=== PATIENT | male | born 1950 ===

== ENCOUNTER 2024-03-26 06:34 | Day surgery (SDC) | payer OTHER ==
[~2024-03-26] VITALS: Ht 166 cm; Wt 93.1 kg
[2024-03-26] VITALS (10 sets, daily range): BP systolic 136–172; BP diastolic 78–95
[~2024-03-26 06:34] MED LIST: DAILY VALUE1 EACH PO; FISH1000 PO; METO25ER PO; NEBI5; THERA-D2000 UNIT PO
[2024-03-26] MEDS ORDERED: CeFAZolin Sodium 2,000 MG in NS 100 ML IV SCH (07:05)
[2024-03-26] MEDS ORDERED: Lactated Ringer's 1,000 ML IV SCH (07:05)
[2024-03-26] MEDS ORDERED: CANDESARTAN CIL32 MG PO (07:21)
[2024-03-26] MEDS ORDERED: UBID10 PO (07:22)
[2024-03-26] MEDS ORDERED: Bupivacaine 0.5% Inj 10 ML Vial ONE (07:46)
[2024-03-26] MEDS ORDERED: FentaNYL Citrate 50 MCG/ML 2 ML Injection ONE ×2 (07:54→08:30)
[2024-03-26] MEDS ORDERED: Lidocaine HCl 2% 20 ML MDV ONE (07:54)
[2024-03-26] MEDS ORDERED: propofoL 20 ML IV ONE (07:54)
[2024-03-26] MEDS ORDERED: Rocuronium Bromide 10 MG/ML 5ML Injection IV ONE (07:55)
--- NOTE | 2024-03-26 08:10 | NUR ---
History, Chart, Medications and Allergies reviewed before start of procedure. Patient up to Ambulate independently. Gait steady. Pre-Op teaching done. Pt verbalizes understanding. Patient confirms NPO status and agrees with scheduled surgery. Patient reports completing Chlorhexadine shower X2 prior to admission to hospital. Surgical site prepped with 2% Chlorhexidine cloth wipe. Lungs clear T/O to Auscultation. Patient States Post-Procedure ride home has been arranged. Dentures removed, placed in cup with cleansing tab & transferred to PACU.
[2024-03-26] MEDS ORDERED: ePHEDrine Sulfate 50 MG/ML 1ML Injection ONE (08:28)
[2024-03-26] MEDS ORDERED: Dexamethasone Sod Phos 10 MG/ML 1ML VIAL ONE (08:28)
[2024-03-26] MEDS ORDERED: Ondansetron HCl 2 MG / ML 2ML Vial ONE (08:49)
[2024-03-26] MEDS ORDERED: Sugammadex Sodium 200 MG/2ML SDV (100 MG/ML) ONE (08:49)
[2024-03-26] MEDS ORDERED: OxyCODONE 5 mg/Acetamin 325 mg TABLET PO PRN (09:15)
--- NOTE | 2024-03-26 10:07 | NUR ---
Discharge instructions reviewed with patient. Patient verbalizes understanding. Copy given to patient to take home. Dressing to procedure site clean, dry, intact with no visible drainage, swelling, erythema or bruising noted. PT REPORTING PAIN 7/10. ORAL PAIN MEDICATION GIVEN, PT REFUSED ANY IV PAIN MEDICATION. SITTING WITH PT. WILL CONTINUE TO MONITOR PAIN.
[2024-03-26] MEDS ORDERED: FentaNYL Citrate 50 MCG/ML 2 ML Injection IV ONE (10:25)
--- NOTE | 2024-03-26 10:46 | NUR ---
PAIN LEVEL UNDER CONTROL. VSS STABLE. REVIEWED PAIN MEDICATION SCHEDULE AND TYLENOL WITH AND PATIENT. ICE PACK SENT WITH PATIENT.
== END 2024-03-26 10:51 | disposition home or self-care (01) ==
LOC: ORSCMMR 06:34 → ORD 08:00 → ORSCMMR 08:00
PROVIDERS: Surgery
PROC: 0WUF4JZ Supplement Abdominal Wall with Synthetic Substitute, Percutaneous Endoscopic Approach (ICD-10-PCS; principal; 2024-03-26 08:00)
DX: K42.0 Umbilical hernia with obstruction, without gangrene (principal); K66.0 Peritoneal adhesions (postprocedural) (postinfection); I12.9 Hypertensive chronic kidney disease with stage 1 through stage 4 chronic kidney disease, or unspecified chronic kidney disease; N18.9 Chronic kidney disease, unspecified; Z87.891 Personal history of nicotine dependence; E78.5 Hyperlipidemia, unspecified; I25.10 Atherosclerotic heart disease of native coronary artery without angina pectoris; E66.9 Obesity, unspecified; Z68.33 Body mass index [BMI] 33.0-33.9, adult; Z79.899 Other long term (current) drug therapy
CPT/HCPCS: 82947; A9270; C1781; J0690; J1100; J2405; J2704; J3010; J7120